=== PATIENT | female | born 1935 | race Caucasian/White ===

== ENCOUNTER 2018-05-21 10:11 | Inpatient (IN) ==
[2018-05-21] MEDS ORDERED: Ondansetron ODT 4 MG TAB.RAPDIS SL ONE (10:28)
--- NOTE | 2018-05-21 10:30 | Emergency Department Note ---
Disposition Clinical Impression: GI bleed, Anemia Disposition: Admitted As Inpatient Condition: Fair General Adult HPI - General Chief complaint: ED GI Bleed Stated complaint: low hemoglobin Time Seen by Provider: 05/21/18 10:13 - Related Data Home Medications Medication Instructions Recorded Confirmed Cholecalciferol (Vitamin D3) 1,000 unit PO DAILY 09/01/15 05/21/18 [Vitamin D3] Mv-Min/FA/Vit K/Lycop/Lut/Zeax 1 tab PO DAILY 09/01/15 05/21/18 [Ocuvite Eye Plus Multi Tablet] Sucralfate [Carafate] 1 gm PO BID 03/24/16 05/21/18 Citalopram [CeleXA] 20 mg PO DAILY 07/19/16 05/21/18 Cyanocobalamin (B-12) [Vitamin B12] 2,000 mcg PO DAILY 07/19/16 05/21/18 Ferrous Gluconate 324 mg PO BID 07/19/16 05/21/18 Furosemide [Lasix] 20 mg PO DAILY 07/19/16 05/21/18 Potassium Chloride [K-Tab ER] 20 meq PO DAILY 07/19/16 05/21/18 Sennosides/Docusate Sodium [Senna 2 tab PO BID 07/19/16 05/21/18 Plus] LORazepam [Ativan] 0.5 mg PO BID 05/21/18 05/21/18 Losartan Potassium [Cozaar] 50 mg PO DAILY 05/21/18 05/21/18 Meclizine HCl [Wal-Dram 2] 25 mg PO Q8H PRN 05/21/18 05/21/18 Mirtazapine [Remeron] 15 mg PO HS 05/21/18 05/21/18 OLANZapine [Zyprexa] 2.5 mg PO HS 05/21/18 05/21/18 Ondansetron HCl [Zofran] 4 mg PO Q6H PRN 05/21/18 05/21/18 Polyethylene Glycol 3350 [MiraLAX 1 scoop PO DAILY 05/21/18 05/21/18 Powder Bulk 17.9 Oz] Rivaroxaban [Xarelto] 20 mg PO DAILY 05/21/18 05/21/18 Previous Rx's Medication Instructions Recorded Omeprazole 20 mg PO DAILY #30 tablet. 09/22/15 Aspirin Enteric Coated [Aspirin EC] 81 mg PO DAILY #30 tablet. 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 history: Reports: no MANAGER INTERMEDIATE history - Social History Smoking Status: Former smoker Smokeless Tobacco Status: No Alcohol use: Reports: none Drug use: Reports: none Course Vital Signs Temperature 97.9 F 05/21/18 10:21 Pulse Rate 62 05/21/18 10:21 Respiratory Rate 18 05/21/18 10:21 Blood Pressure 136/83 05/21/18 10:21 O2 Sat by Pulse Oximetry 98 05/21/18 10:21 Temperature 98.3 F 05/21/18 14:20 Pulse Rate 86 05/21/18 14:20 Respiratory Rate 16 05/21/18 16:15 Blood Pressure 166/66 05/21/18 15:18 O2 Sat by Pulse Oximetry 99 05/21/18 16:15 Oxygen Delivery Oxygen Delivery Nasal Cannula Medical Decision Making - Lab Data Result diagrams: 05/21/18 15:45 05/21/18 10:41 Lab Results 05/21/18 05/21/18 05/21/18 Range/Units 10:41 10:41 10:41 WBC 4.0 L (4.3-11.1) K/mcL RBC 3.42 L (3.82-4.97) M/mcL Hgb 8.1 L (11.5-15.4) g/dL Hct 28.0 L (35.3-44.9) % MCV 81.9 L (83.0-100.0) fL MCH 23.7 L (28.0-33.3) pg MCHC 28.9 L (31.6-35.5) g/dL RDW 16.2 H (11.5-14.5) % Plt Count 221 (140-400) K/mcL MPV 10.8 (9.4-12.4) fL Immature Gran % 0.3 (0-4) % Seg Neutrophils % 61.6 % Lymphocytes % 23.2 % Monocytes % 10.6 % Eosinophils % 3.3 % Basophils % 1.0 % Neutrophils # 2.5 (1.6-8.9) K/mcL Lymphocytes # 0.9 (0.6-4.6) K/mcL Monocytes # 0.4 (0.0-1.3) K/mcL Eosinophils # 0.1 (0.0-0.6) K/mcL Basophils # 0.0 (0.0-0.2) K/mcL Nucleated RBCs/100 WBC 0.5 H (0) /100 WBC Hypochromasia Present A (Not Present) Anisocytosis 1+ A (Not Present) PT (9.4-12.1) Seconds INR APTT (26.0-36.0) Seconds Sodium 140 (136-145) mEq/L Potassium 4.1 (3.5-5.1) mEq/L Chloride 110 H (98-107) mEq/L Carbon Dioxide 27 (23-29) mEq/L BUN 20 (8-23) mg/dL Creatinine 0.85 (0.60-1.20) mg/dL Est GFR ( Amer) > 60 (> 60) Est GFR (Non-Af Amer) > 60 (> 60) BUN/Creatinine Ratio 24 (6-26) Glucose 170 H (70-105) mg/dL Calculated Osmolality 297 (280-300) Calcium 8.9 (8.6-10.3) mg/dL Total Bilirubin 0.3 (0.3-1.0) mg/dL AST 12 L (13-39) Units/L ALT 6 L (7-52) Units/L Alkaline Phosphatase 54 (34-104) Units/L Troponin I (< 0.04) ng/mL Serum Total Protein 6.5 (6.4-8.9) g/dL Albumin 3.5 (3.5-5.7) g/dL Globulin 3.0 (2.4-3.5) g/dL Albumin/Globulin Ratio 1.2 (1.1-2.2) Urine Color (Yellow) Urine Clarity (Clear) Urine pH (5.0-8.0) pH Units Ur Specific [place] (1.010-1.025) Urine Protein (Neg-Trace) mg/dL Urine Glucose (UA) (Normal) mg/dL Urine Ketones (Negative) mg/dL Urine Blood (Negative) Urine Nitrite (Negative) Urine Bilirubin (Negative) Urine Urobilinogen (Normal) mg/dL Ur Leukocyte Esterase (Negative) Urine Microscopic RBC (0-3) per hpf Urine Microscopic WBC (0-3) per hpf Ur Squamous Epith Cells (None-Few) per lpf Urine Bacteria (None-Few) per hpf Hyaline Casts (None-Few) per lpf Ur Culture Indicated? (NO) Blood Type A POSITIVE Antibody Screen NEGATIVE 05/21/18 05/21/18 05/21/18 Range/Units 10:41 11:34 12:13 WBC (4.3-11.1) K/mcL RBC (3.82-4.97) M/mcL Hgb (11.5-15.4) g/dL Hct (35.3-44.9) % MCV (83.0-100.0) fL MCH (28.0-33.3) pg MCHC (31.6-35.5) g/dL RDW (11.5-14.5) % Plt Count (140-400) K/mcL MPV (9.4-12.4) fL Immature Gran % (0-4) % Seg Neutrophils % % Lymphocytes % % Monocytes % % Eosinophils % % Basophils % % Neutrophils # (1.6-8.9) K/mcL Lymphocytes # (0.6-4.6) K/mcL Monocytes # (0.0-1.3) K/mcL Eosinophils # (0.0-0.6) K/mcL Basophils # (0.0-0.2) K/mcL Nucleated RBCs/100 WBC (0) /100 WBC Hypochromasia (Not Present) Anisocytosis (Not Present) PT 19.0 H (9.4-12.1) Seconds INR 1.7 APTT 37.8 H (26.0-36.0) Seconds Sodium (136-145) mEq/L Potassium (3.5-5.1) mEq/L Chloride (98-107) mEq/L Carbon Dioxide (23-29) mEq/L BUN (8-23) mg/dL Creatinine (0.60-1.20) mg/dL Est GFR ( Amer) (> 60) Est GFR (Non-Af Amer) (> 60) BUN/Creatinine Ratio (6-26) Glucose (70-105) mg/dL Calculated Osmolality (280-300) Calcium (8.6-10.3) mg/dL Total Bilirubin (0.3-1.0) mg/dL AST (13-39) Units/L ALT (7-52) Units/L Alkaline Phosphatase (34-104) Units/L Troponin I < 0.03 (< 0.04) ng/mL Serum Total Protein (6.4-8.9) g/dL Albumin (3.5-5.7) g/dL Globulin (2.4-3.5) g/dL Albumin/Globulin Ratio (1.1-2.2) Urine Color Yellow (Yellow) Urine Clarity Cloudy A (Clear) Urine pH 5.5 (5.0-8.0) pH Units Ur Specific [place] 1.019 (1.010-1.025) Urine Protein Negative (Neg-Trace) mg/dL Urine Glucose (UA) Normal (Normal) mg/dL Urine Ketones Negative (Negative) mg/dL Urine Blood Trace H (Negative) Urine Nitrite Positive A (Negative) Urine Bilirubin Negative (Negative) Urine Urobilinogen Normal (Normal) mg/dL Ur Leukocyte Esterase Moderate H (Negative) Urine Microscopic RBC 0-3 (0-3) per hpf Urine Microscopic WBC 30-50 H (0-3) per hpf Ur Squamous Epith Cells None Seen (None-Few) per lpf Urine Bacteria Many H (None-Few) per hpf Hyaline Casts Few (None-Few) per lpf Ur Culture Indicated? YES A (NO) Blood Type Antibody Screen Attestation Statement - Attestation Attestation: I examined this patient and my medical decision-making was reviewed with the Resident Physician. I agree with the documented findings, disposition and treatment plan as described except to the extent set forth below. [id number] time provided Patient presents from the extended care facility with anemia - Hb 6.9. She is a poor historian due to dementia. Medication list reviewed by me.
[2018-05-21 11:17] LABS: Hemoglobin 8.1 g/dL (11.5-15.4); Immature Granulocytes % 0.3 % (0-4)
[2018-05-21 11:18] LABS: Eosinophils # 0.1 K/mcL (0.0-0.6); Eosinophils % 3.3 %; Lymphocytes # 0.9 K/mcL (0.6-4.6); Lymphocytes % 23.2 %; Mean Corpuscular HGB Conc 28.9 g/dL (31.6-35.5); Mean Corpuscular Hemoglobin 23.7 pg (28.0-33.3); Mean Corpuscular Volume 81.9 fL (83.0-100.0); Mean Platelet Volume 10.8 fL (9.4-12.4); Monocytes # 0.4 K/mcL (0.0-1.3); Monocytes % 10.6 %; Nucleated Red Blood Cells 0.5 /100 WBC (0); Platelet Count 221 K/mcL (140-400); Red Blood Count 3.42 M/mcL (3.82-4.97); Red Cell Distribution Width 16.2 % (11.5-14.5); Segmented Neutrophils % 61.6 %
--- NOTE | 2018-05-21 11:19 | Emergency Department Note ---
Disposition Clinical Impression: GI bleed Qualifiers: GI bleed type/associated pathology: unspecified gastrointestinal hemorrhage type Qualified Code(s): K92.2 - Gastrointestinal hemorrhage, unspecified Anemia Qualifiers: Anemia type: unspecified type Qualified Code(s): D64.9 - Anemia, unspecified Disposition: Admitted As Inpatient Condition: Fair Forms: ED Satisfaction Letter Time of Disposition: 12:28 General Adult HPI - General Chief complaint: ED GI Bleed Stated complaint: low hemoglobin Time Seen by Provider: 05/21/18 10:13 Source: patient, EMS Mode of arrival: EMS Limitations: other Nursing Notes Reviewed: Yes Vital Signs Reviewed: Yes - History of Present Illness HPI Narrative: Patient is an 83-year-old female resident [facility] a [facility] who reports that this morning she was having abdominal pain, and a cough with throat pain that has been going on for 3 days. Additionally she was sent from the facility for hemoglobin of 6.9. Patient is alert and oriented to person and place only, and it was reported that she has baseline dementia. Additionally paperwork from the detention states that she has a history of peptic ulcer, hypertension, CVA, depression and anxiety, GERD, constipation, atrial fibrillation. Patient endorses chest pain that started today and is described as a dull pounding, abdominal pain centered around her umbilicus, nausea and vomiting, constipation, headache, dizzy and lightheadedness, and is tearful on exam. Patient denies shortness of breath and dysuria. Pain Scale: 0 - Related Data Home Medications Medication Instructions Recorded Confirmed Apixaban [Eliquis] 5 mg PO BID 09/01/15 07/24/16 Cholecalciferol (Vitamin D3) 1,000 unit PO DAILY 09/01/15 07/24/16 [Vitamin D3] Mv-Min/FA/Vit K/Lycop/Lut/Zeax 1 tab PO DAILY 09/01/15 07/24/16 [Ocuvite Eye Plus Multi Tablet] Valsartan [Diovan] 160 mg PO DAILY 03/11/16 07/24/16 Sucralfate [Carafate] 10 ml PO BID 03/24/16 07/24/16 Citalopram [CeleXA] 10 mg PO DAILY 07/19/16 07/24/16 Cyanocobalamin (B-12) [Vitamin B12] 2,000 mcg PO DAILY 07/19/16 07/24/16 Ferrous Gluconate 324 mg PO BID 07/19/16 07/24/16 Furosemide [Lasix] 20 mg PO DAILY 07/19/16 07/24/16 Potassium Chloride [K-Tab ER] 20 meq PO DAILY 07/19/16 07/24/16 Sennosides/Docusate Sodium [Senna 2 tab PO BID 07/19/16 07/24/16 Plus] Previous Rx's Medication Instructions Recorded Omeprazole 20 mg PO DAILY #30 tablet. 09/22/15 Aspirin Enteric Coated [Aspirin EC] 81 mg PO DAILY #30 tablet. 08/18/16 OLANZapine [Zyprexa Zydis] 5 mg PO HS #30 tab.rapdis 08/18/16 amLODIPine [Norvasc] 5 mg PO DAILY #30 tablet 08/18/16 Allergies Allergy/AdvReac Type Severity Reaction Status Date / Time codeine Allergy Mild See Verified 07/19/16 13:00 Comments All systems ED: reviewed and negative except as stated. Review of Systems: As Per HPI Constitutional: Reports: chills ENT ED: Reports: throat pain Cardiovascular: Reports: chest pain Respiratory: Reports: cough Gastrointestinal: Reports: abdominal pain, nausea, vomiting, constipation. Denies: diarrhea Genitourinary: Denies: dysuria Neurological: Reports: headache Psychiatric: Reports: anxiety Endocrine: Reports: heat or cold intolerance Past Medical History - Past Medical History Medical history: Reports: atrial fibrillation, CVA, dementia, hypertension, other Surgical history: Reports: cholecystectomy Psychiatric history: Reports: anxiety RAIL WASHER history: Reports: no RAIL WASHER history - Social History Smoking Status: Former smoker Smokeless Tobacco Status: No Alcohol use: Reports: none Drug use: Reports: none Physical Exam - General Limitations: other General appearance: alert, in no apparent distress - Head Head exam: atraumatic, normocephalic - Eye Eye exam: Present: normal appearance, PERRL - Chest Chest inspection: Present: normal inspection, symmetric chest wall rise - Respiratory Respiratory exam: Present: normal lung sounds bilaterally. Absent: respiratory distress, wheezes - Cardiovascular Cardiovascular exam: Present: regular rate, normal rhythm, systolic murmur - Abdominal Exam Abdominal exam: Present: soft, tenderness Abdominal tenderness: Present: suprapubic, diffuse - Rectal Exam Director Of Physical Security present during exam: Yes (RN Thi Martinez) Rectal exam: Present: normal rectal tone, black stool, hemorrhoids (external) - Neurological Exam Neurological exam: Present: alert - Psychiatric Psychiatric exam: Present: normal affect, normal mood - Skin Skin exam: Present: warm, dry, intact Course Course Narrative: Patient is tearful on exam, and complaining of abdominal pain, as well as chest pain. We will do a chest pain workup to include chest x-ray, troponin, basic labs to include CBC, CMP, type and screen. Straight catheter urinalysis. EKG. Hemoccult screening. An she will be given Zofran for her nausea. Vital Signs Temperature 97.9 F 05/21/18 10:21 Pulse Rate 62 05/21/18 10:21 Respiratory Rate 18 05/21/18 10:21 Blood Pressure 136/83 05/21/18 10:21 O2 Sat by Pulse Oximetry 98 05/21/18 10:21 Temperature 97.9 F 05/21/18 10:21 Pulse Rate 62 05/21/18 11:34 Respiratory Rate 18 05/21/18 11:34 Blood Pressure 166/49 05/21/18 11:34 O2 Sat by Pulse Oximetry 99 05/21/18 11:34 Oxygen Delivery Oxygen Delivery Room Air Medical Decision Making - MDM Narrative Medical decision making narrative: Patient's chest x-ray was negative for acute cardiopulmonary process and her troponin was normal. Patient's repeat hemoglobin in the department was 8.1, which represents a difference from her baseline of 11. We will hold off transfusing for now. Her Hemoccult was positive. So she will need to be admitted for GI bleed. Patient will be given a dose of Protonix in the emergency department. Additionally patient's urine was positive for UTI, so she will be given 1 g of Rocephin while in the department. Dr Jain, hospitalist, accepts the patient. - Medical Records Medical records reviewed: Yes I reviewed the patient's medical records. - Lab Data Lab results reviewed: Yes I reviewed the patient's lab results. Result diagrams: 05/21/18 10:41 05/21/18 10:41 Lab Results 05/21/18 05/21/18 05/21/18 Range/Units 10:41 10:41 10:41 WBC 4.0 L (4.3-11.1) K/mcL RBC 3.42 L (3.82-4.97) M/mcL Hgb 8.1 L (11.5-15.4) g/dL Hct 28.0 L (35.3-44.9) % MCV 81.9 L (83.0-100.0) fL MCH 23.7 L (28.0-33.3) pg MCHC 28.9 L (31.6-35.5) g/dL RDW 16.2 H (11.5-14.5) % Plt Count 221 (140-400) K/mcL MPV 10.8 (9.4-12.4) fL Immature Gran % 0.3 (0-4) % Seg Neutrophils % 61.6 % Lymphocytes % 23.2 % Monocytes % 10.6 % Eosinophils % 3.3 % Basophils % 1.0 % Neutrophils # 2.5 (1.6-8.9) K/mcL Lymphocytes # 0.9 (0.6-4.6) K/mcL Monocytes # 0.4 (0.0-1.3) K/mcL Eosinophils # 0.1 (0.0-0.6) K/mcL Basophils # 0.0 (0.0-0.2) K/mcL Nucleated RBCs/100 WBC 0.5 H (0) /100 WBC Hypochromasia Present A (Not Present) Anisocytosis 1+ A (Not Present) Sodium 140 (136-145) mEq/L Potassium 4.1 (3.5-5.1) mEq/L Chloride 110 H (98-107) mEq/L Carbon Dioxide 27 (23-29) mEq/L BUN 20 (8-23) mg/dL Creatinine 0.85 (0.60-1.20) mg/dL Est GFR ( Amer) > 60 (> 60) Est GFR (Non-Af Amer) > 60 (> 60) BUN/Creatinine Ratio 24 (6-26) Glucose 170 H (70-105) mg/dL Calculated Osmolality 297 (280-300) Calcium 8.9 (8.6-10.3) mg/dL Total Bilirubin 0.3 (0.3-1.0) mg/dL AST 12 L (13-39) Units/L ALT 6 L (7-52) Units/L Alkaline Phosphatase 54 (34-104) Units/L Troponin I (< 0.04) ng/mL Serum Total Protein 6.5 (6.4-8.9) g/dL Albumin 3.5 (3.5-5.7) g/dL Globulin 3.0 (2.4-3.5) g/dL Albumin/Globulin Ratio 1.2 (1.1-2.2) Urine Color (Yellow) Urine Clarity (Clear) Urine pH (5.0-8.0) pH Units Ur Specific [place] (1.010-1.025) Urine Protein (Neg-Trace) mg/dL Urine Glucose (UA) (Normal) mg/dL Urine Ketones (Negative) mg/dL Urine Blood (Negative) Urine Nitrite (Negative) Urine Bilirubin (Negative) Urine Urobilinogen (Normal) mg/dL Ur Leukocyte Esterase (Negative) Urine Microscopic RBC (0-3) per hpf Urine Microscopic WBC (0-3) per hpf Ur Squamous Epith Cells (None-Few) per lpf Urine Bacteria (None-Few) per hpf Hyaline Casts (None-Few) per lpf Ur Culture Indicated? (NO) Stool Occult Bld Scrn (Negative) Blood Type A POSITIVE Antibody Screen NEGATIVE 05/21/18 05/21/18 05/21/18 Range/Units 10:41 11:34 Unknown WBC (4.3-11.1) K/mcL RBC (3.82-4.97) M/mcL Hgb (11.5-15.4) g/dL Hct (35.3-44.9) % MCV (83.0-100.0) fL MCH (28.0-33.3) pg MCHC (31.6-35.5) g/dL RDW (11.5-14.5) % Plt Count (140-400) K/mcL MPV (9.4-12.4) fL Immature Gran % (0-4) % Seg Neutrophils % % Lymphocytes % % Monocytes % % Eosinophils % % Basophils % % Neutrophils # (1.6-8.9) K/mcL Lymphocytes # (0.6-4.6) K/mcL Monocytes # (0.0-1.3) K/mcL Eosinophils # (0.0-0.6) K/mcL Basophils # (0.0-0.2) K/mcL Nucleated RBCs/100 WBC (0) /100 WBC Hypochromasia (Not Present) Anisocytosis (Not Present) Sodium (136-145) mEq/L Potassium (3.5-5.1) mEq/L Chloride (98-107) mEq/L Carbon Dioxide (23-29) mEq/L BUN (8-23) mg/dL Creatinine (0.60-1.20) mg/dL Est GFR ( Amer) (> 60) Est GFR (Non-Af Amer) (> 60) BUN/Creatinine Ratio (6-26) Glucose (70-105) mg/dL Calculated Osmolality (280-300) Calcium (8.6-10.3) mg/dL Total Bilirubin (0.3-1.0) mg/dL AST (13-39) Units/L ALT (7-52) Units/L Alkaline Phosphatase (34-104) Units/L Troponin I < 0.03 (< 0.04) ng/mL Serum Total Protein (6.4-8.9) g/dL Albumin (3.5-5.7) g/dL Globulin (2.4-3.5) g/dL Albumin/Globulin Ratio (1.1-2.2) Urine Color Yellow (Yellow) Urine Clarity Cloudy A (Clear) Urine pH 5.5 (5.0-8.0) pH Units Ur Specific [place] 1.019 (1.010-1.025) Urine Protein Negative (Neg-Trace) mg/dL Urine Glucose (UA) Normal (Normal) mg/dL Urine Ketones Negative (Negative) mg/dL Urine Blood Trace H (Negative) Urine Nitrite Positive A (Negative) Urine Bilirubin Negative (Negative) Urine Urobilinogen Normal (Normal) mg/dL Ur Leukocyte Esterase Moderate H (Negative) Urine Microscopic RBC 0-3 (0-3) per hpf Urine Microscopic WBC 30-50 H (0-3) per hpf Ur Squamous Epith Cells None Seen (None-Few) per lpf Urine Bacteria Many H (None-Few) per hpf Hyaline Casts Few (None-Few) per lpf Ur Culture Indicated? YES A (NO) Stool Occult Bld Scrn Positive A (Negative) Blood Type Antibody Screen - Radiology Data Radiology results reviewed: Yes I reviewed the patient's radiology results. Chest X-Ray 05/21/18 10:31 IMPRESSION: No acute cardiopulmonary disease D/ / Will Zhang MD / Will Zhang MD Interpreting Provider: Will Zhang MD - EKG Data EKG #1 EKG attestation: Yes I reviewed and interpreted this EKG. EKG results narrative: HR 63, Sinus rhythm, axis normal. TN 169, QRS 108, QTC 455. No evidence of St elevation or depression.
[2018-05-21 11:20] LABS: Neutrophils # 2.5 K/mcL (1.6-8.9)
[2018-05-21 11:23] LABS: Alanine Aminotransferase 6 Units/L (7-52); Albumin 3.5 g/dL (3.5-5.7); Albumin/Globulin Ratio 1.2 (1.1-2.2); Alkaline Phosphatase 54 Units/L (34-104); Aspartate Amino Transferase 12 Units/L (13-39); BUN/Creatinine Ratio 24 (6-26); Bilirubin,Total 0.3 mg/dL (0.3-1.0); Blood Urea Nitrogen 20 mg/dL (8-23); Calcium 8.9 mg/dL (8.6-10.3); Carbon Dioxide 27 mEq/L (23-29); Chloride 110 mEq/L (98-107); Glucose 170 mg/dL (70-105); Osmolality,Calculated 297 (280-300); Potassium 4.1 mEq/L (3.5-5.1); Sodium 140 mEq/L (136-145); Total Protein 6.5 g/dL (6.4-8.9); eGFR For Non-African Americans > 60 (> 60)
[2018-05-21 11:37] LABS: Hypochromasia Present (Not Present)
[2018-05-21 11:38] LABS: Anisocytosis 1+ (Not Present)
[2018-05-21 11:47] LABS: Bilirubin,Urine Negative (Negative); Blood,Urine Trace (Negative); Clarity,Urine Cloudy (Clear); Color,Urine Yellow (Yellow); Glucose,Urine (UA) Normal (Normal); Ketones,Urine Negative (Negative); Leukocyte Esterase,Urine Moderate (Negative); Nitrite,Urine Positive (Negative); PH,Urine 5.5 pH Units (5.0-8.0); Protein,Urine Negative (Neg-Trace); Specific Gravity,Urine 1.019 (1.010-1.025); Urobilinogen,Urine Normal (Normal)
[2018-05-21 11:49] LABS: Bacteria,Urine Many per hpf (None-Few); Hyaline Casts,Urine Few per lpf (None-Few); RBC,Urine 0-3 per hpf (0-3); Squamous Epithelial Cell,Urine None Seen per lpf (None-Few); WBC,Urine 30-50 per hpf (0-3)
[2018-05-21] MEDS ORDERED: Pantoprazole 40 MG VIAL IVP ONE (12:02)
[2018-05-21] MEDS ORDERED: cefTRIAXone 1,000 MG in Water for inj. (sterile) 20 ML 10 ML IVP ONE (12:02)
[2018-05-21 12:37] LABS: INR 1.7
[2018-05-21 12:39] LABS: Activated Partial Thrombo Time 37.8 Seconds (26.0-36.0)
[2018-05-21] MEDS ORDERED: Ipratropium/Albuterol Neb 3 ML IH PRN (13:02)
[2018-05-21] MEDS ORDERED: Naloxone 0.4 MG/ML INJ IVP PRN (13:09)
[2018-05-21] MEDS ORDERED: Acetaminophen 325 MG TABLET PO PRN (13:09)
--- NOTE | 2018-05-21 13:50 | Internal Med History&Physical ---
<Demar Cat - Last Filed: 05/21/18 14:48> Date of Encounter: 05/21/18 Time of Encounter: 12:30 Internal Medicine - H&P: HPI Chief complaint: Low Hgb/Weakness/Pain w/Urination Admitted From: Emergency Dept Plans for Post Hospital Care: Transfer Nursing Home Facility History of present illness: Ms. Yin is a 83 year old female w/PMH of paroxysmal atrial fibrillation, history of CVA, dementia, HTN, GERD, vertigo, anxiety, and depression presents from the ED w/CC of Hgb of 6.9 at ECF last night ([facility]). Pt. denies unusual bleeding or presence of visible blood in stool or melanotic stools but reports weakness and hx of anemia. Pt. also reports pain/pressure in suprapubic area w/discomfort and difficulty when urinating. States sx have been present for the past several days. Also reports cough for the same time period. States appetite is good and does not use nutritional supplementation. Pt. reports weakness in bilateral LEs, SOB, and difficulty w/ambulation using walker but denies recent illness, fever, chills, nausea, vomiting, headache, changes in vision, unusual bleeding, diarrhea, constipation, dizziness, lightheadedness, numbness, tingling, pre-syncope, or syncope. Past Med Surg Social Fam HX - Past Medical History Source: patient, old records reviewed Medical history: atrial fibrillation, CVA, dementia, GERD, hypertension, other ( Vertigo) Additional medical history: vitamin D deficency Psychiatric history: anxiety, depression, PTSD - Past Surgical History Surgical History: cholecystectomy Additional surgical history: hernia,lasik - Social History Smoking Status: Former smoker Smokeless Tobacco Status: No Alcohol use: none Drug use: none Current living situation: [facility] Activity Level: Uses cane/walker Recent Out of Country Travel Within the Last 8 Weeks: No Exposure or Possible Exposure to Illness During Travel: No - Family History Mother Adopted: No Race: Family Member Ethnicity: Non- Living Status: Hx Family Cardiac Disorders: Yes (heart problems) Father History Unknown: Yes (D/t divorce) Race: Family Member Ethnicity: Non- Living Status: Cause of : Unknown Internal Medicine - H&P: Meds Cholecalciferol (Vitamin D3) [Vitamin D3] 1,000 unit PO DAILY 09/01/15 [History] Mv-Min/FA/Vit K/Lycop/Lut/Zeax [Ocuvite Eye Plus Multi Tablet] 1 tab PO DAILY [History] Omeprazole 20 mg PO DAILY #30 tablet. 09/22/15 [Rx] Sucralfate [Carafate] 1 gm PO BID 03/24/16 [History] Citalopram [CeleXA] 20 mg PO DAILY 07/19/16 [History] Cyanocobalamin (B-12) [Vitamin B12] 2,000 mcg PO DAILY 07/19/16 [History] Ferrous Gluconate 324 mg PO BID 07/19/16 [History] Furosemide [Lasix] 20 mg PO DAILY 07/19/16 [History] Potassium Chloride [K-Tab ER] 20 meq PO DAILY 07/19/16 [History] Sennosides/Docusate Sodium [Senna Plus] 2 tab PO BID 07/19/16 [History] Aspirin Enteric Coated [Aspirin EC] 81 mg PO DAILY #30 tablet. 08/18/16 [Rx] LORazepam [Ativan] 0.5 mg PO BID 05/21/18 [History] Losartan Potassium [Cozaar] 50 mg PO DAILY 05/21/18 [History] Meclizine HCl [Wal-Dram 2] 25 mg PO Q8H PRN 05/21/18 [History] Mirtazapine [Remeron] 15 mg PO HS 05/21/18 [History] OLANZapine [Zyprexa] 2.5 mg PO HS 05/21/18 [History] Ondansetron HCl [Zofran] 4 mg PO Q6H PRN 05/21/18 [History] Polyethylene Glycol 3350 [MiraLAX Powder Bulk 17.9 Oz] 1 scoop PO DAILY [History] Rivaroxaban [Xarelto] 20 mg PO DAILY 05/21/18 [History] 3 Allergy/AdvReac Type Severity Reaction Status Date / Time codeine Allergy Mild See Verified 07/19/16 13:00 Comments All Systems PM: A 10-system review of systems was performed and is negative for pertinent findings except as documented above in the HPI. - Constitutional Constitutional: as per HPI, weakness (Bilateral LEs), no chills, no fever(s), no night sweats - EENT Eyes: no change in vision, no discharge, no pain, no photophobia Ears: no ear discharge, no ear pain, no tinnitus Nose, mouth and throat: no dysphagia, no nasal discharge, no neck pain, no sore throat - Breasts Breasts: as per HPI - Cardiovascular Cardiovascular ROS IM: as per HPI, dyspnea, dyspnea on exertion, no chest pain, no diaphoresis, no lightheadedness, no palpitations, no syncope - Respiratory Respiratory: as per HPI, cough, dyspnea, dyspnea on exertion, no wheezing, no excessive phlegm production - Gastrointestinal Gastrointestinal: as per HPI, abdominal pain (Suprapubic region), no diarrhea, no hematemesis, no hematochezia, no melena, no nausea, no vomiting - Genitourinary Genitourinary: as per HPI, difficulty urinating, urinary hesitancy, no change in urinary stream, no dysuria, no flank pain, no hematuria Menstruation: as per HPI - Musculoskeletal Musculoskeletal ROS IM: as per HPI, muscle weakness (Bilateral LEs), no numbness , no tingling - Integumentary Integumentary IM: no rash, no unusual bruising - Neurological Neurological ROS: as per HPI, no confusion, no convulsions, no focal weakness, no numbness, no tingling, no tremor(s) - Psychiatric Psychiatric: as per HPI, anxiety, depression - Endocrine Endocrine IM: as per HPI - Hematologic/Lymphatic Hematologic/Lymphatic: no easy bruising - Allergic/Immunologic Allergic/Immunologic: as per HPI - Constitutional Vitals: Temp Pulse Resp BP Pulse Ox 97.9 F 58 16 156/64 100 05/21/18 10:21 05/21/18 13:01 05/21/18 13:01 05/21/18 13:01 05/21/18 13:01 General appearance: Present: cooperative, A&O X 2, mild distress (Abdominal pain , SOB), obese, answers questions appropriately Exam: Pt. examined at bedside in ED. Reports abdominal pain in central abdomen as well as suprapubic area, shortness of breath, cough, and weakness in LEs. Denies any other complaints at this time. Pt. has hx of dementia but is able to hold conversation and has recall regarding medical and family hx. VS: 97.9F temp , HR 58, RR 16, BP 156/64, SPO2 100% on 2 L via nasal cannula. - Head Head exam: Present: atraumatic, normocephalic - Eye Eye exam: Present: PERRL, conjuntiva pink, sclera anicteric Pupils: Present: PERRL - ENT ENT exam: Present: normal exam - Neck Neck exam general surgery: Present: normal inspection, supple, trachea midline. Absent: lymphadenopathy - Respiratory Respiratory exam: Present: CTAB. Absent: accessory muscle use, rales, rhonchi, wheezes - Cardiovascular Cardiovascular exam: Present: RRR, +S1, +S2. Absent: diastolic murmur, gallop, rubs, systolic murmur - GI/Abdominal GI/Abdominal exam: Present: normal bowel sounds, soft, tenderness, no peritoneal signs. Absent: distended - Rectal Rectal exam: Present: deferred - Additional comments: exam deferred. - Extremities Exam Extremities exam: Present: pedal edema (Non-pitting), warm, radial pulses palpable and symmetrical. Absent: calf tenderness, cyanotic - Back Exam Back exam: Present: normal inspection - Neurological Exam Neurological exam: Present: alert, CN II-XII intact, oriented X3, no focal deficits. Absent: pronater drift, facial droop, speech deficit - Psychiatric Psychiatric exam: Present: anxious - Skin Skin exam: Present: dry, intact Internal Med - H&P Results - Labs CBC & Chem 7: 05/21/18 10:41 05/21/18 10:41 - EKG Data EKG shows normal: sinus rhythm - EKG Data Prior EKG available for review: yes EKG comments: 05/21/18 13:56 EKG dated 11/04/16 shows sinus bradycardia with borderline left axis deviation and poor R-wave progression. EKG dated 05/21/18 shows sinus rhythm with normal P axis, the rate 50-99. - Diagnostic Studies Chest x-ray Additional comments: Impressions Chest X-Ray 05/21/18 10:31 IMPRESSION: No acute cardiopulmonary disease D/ / Will Zhang MD / Will Zhang MD Interpreting Provider: Will Zhang MD - Assessment and plan (1) GI bleed Current Visit: Yes Status: Acute Assessment and plan: Acute suspected GI bleed based on drop in Hgb to 6.9 at ECF last night. Hgb 8.1 at [facility] today on admission. Pt. has hx of anemia. Positive fecal hemoccult today. Pt. denies visible jose alberto blood in stool or melanotic stools. Reports abdominal pain. Iron profile/B12/Folate ordered d/t pts. hx of anemia. Pt. on Xarelto d/t hx of paroxysmal Afib. Last dose of Xarelto was 07:22 this morning at ECF. IVP Protonix 40 mg BID ordered. H/H Q6HR. Pt. typed and screened for possible transfusion. GI consult ordered and discussed w/Dr. Jenkins and I appreciate the consult and recommendations. NPO for now. Bilateral SCDs for DVT prophylaxis. Will follow GI recommendations regarding re-starting Xarelto. Pt. discussed w/Dr. Jain who agrees w/plan of care. Pt. is high risk for further morbidity and complications due to current suspected GI bleeding, drop in Hgb, current UTI, history, and risk factors and comorbidities. Observation. Qualifiers: GI bleed type/associated pathology: unspecified gastrointestinal hemorrhage type Qualified Code(s): K92.2 - Gastrointestinal hemorrhage, unspecified (2) Urinary tract infection Current Visit: Yes Status: Acute Assessment and plan: Acute UTI according to U/A which showed positive nitrites, moderate leukocyte esterase, high microscopic WBCs, and many urine bacteria. IVPB ceftriaxone 2, 000 mg daily ordered for infection coverage. Urine culture ordered. Will adjust abx coverage based on culture results if warranted. Qualifiers: Urinary tract infection type: site unspecified Hematuria presence: without hematuria Qualified Code(s): N39.0 - Urinary tract infection, site not specified (3) Abdominal pain Current Visit: Yes Status: Acute Assessment and plan: Acute abdominal pain in central abdomen and lower suprapubic area d/t GI bleed and current UTI. Suspected GI bleeding d/t drop in Hgb. IVP Protonix 40 mg BID. GI consult ordered and discussed w/Dr. Jenkins and I appreciate the consult and recommendations as always. Stair-step pain medication for pain mgmt. U/A indicative of UTI/culture Urine culture ordered. IVPB ceftriaxone 2,000 daily ordered. Qualifiers: Abdominal location: lower abdomen, unspecified Qualified Code(s): R10.30 - Lower abdominal pain, unspecified (4) Weakness of both lower extremities Current Visit: Yes Status: Acute Assessment and plan: Acute worsening weakness of bilateral LEs. Pt. describes difficulty w/ ambulating using walker. Falls/safety precautions and up with assist only. PT/ OT consults ordered. (5) Anemia Current Visit: Yes Status: Chronic Assessment and plan: Hx of chronic anemia. Hgb 6.9 at ECF last night. 8.1 at [facility] today on admission. Positive fecal hemoccult today. H/H Q6HR. Iron profile/B12/Folate ordered. Continue pts. B12 and ferrous gluconate. GI consult ordered and discussed w/Dr. Jenkins and I appreciate the consult and recommendations as always. Qualifiers: Anemia type: unspecified type Qualified Code(s): D64.9 - Anemia, unspecified (6) HTN (hypertension) Current Visit: Yes Status: Chronic Assessment and plan: Hx of chronic HTN. Monitor pt. and VS. Continue pts. Cozaar. Add IVP hydralazine 10 mg Q6HR PRN w/parameters. Qualifiers: Hypertension type: essential hypertension Qualified Code(s): I10 - Essential (primary) hypertension (7) GERD (gastroesophageal reflux disease) Current Visit: Yes Status: Chronic Assessment and plan: Hx of chronic GERD. Hold pts. PO omeprazole and administer IVP Protonix 40 mg BID. Qualifiers: Esophagitis presence: esophagitis presence not specified Qualified Code(s) : K21.9 - Gastro-esophageal reflux disease without esophagitis (8) Anxiety and depression Current Visit: Yes Status: Chronic Assessment and plan: Hx of chronic anxiety, depression, and PTSD. Continue pts. Ativan, Celexa, Zyprexa, and Remeron. Order sitter if pt. shows signs of Sundowning. (9) Paroxysmal a-fib Current Visit: Yes Status: Chronic Assessment and plan: Hx of paroxysmal Afib. EKG today shows sinus rhythm. Will continue pts. Xarelto on GI's recommendation d/t current suspected GI bleeding. Continuous cardiac telemetry. (10) Dementia Current Visit: Yes Status: Chronic Assessment and plan: Hx of chronic dementia. Continue Zyprexa HS. Will order sitter if pt. shows sx of Sundowning. Qualifiers: Dementia type: vascular dementia Dementia behavioral disturbance: with behavioral disturbance Qualified Code(s): F01.51 - Vascular dementia with behavioral disturbance (11) Vertigo Current Visit: Yes Status: Chronic Assessment and plan: Hx of chronic vertigo. Falls/safety precautions and up with assist only. Continue pts. Meclizine. (12) History of CVA (cerebrovascular accident) Current Visit: Yes Status: Resolved Assessment and plan: Hx of previous CVA. Pt. denies residual effects/weakness. (13) DVT prophylaxis Current Visit: Yes Status: Acute Assessment and plan: Bilateral SCDs on LEs d/t current suspected GI bleeding. Pt. on Xarelto and received last dose at 07:22 this morning. INR 1.7 on admission. Monitor pt. for signs of bleeding. (14) SOB (shortness of breath) Current Visit: Yes Status: Acute Assessment and plan: Acute SOB, likely d/t anemia. Pt. denies home O2 use or nebulizer txs. Supplemental O2 w/titration and SpO2 monitoring. Xopenex IH. Pt. also reports cough for the past few days. Respiratory Infection panel ordered. Mucinex for cough. - Time Spent With Patient Total time spent is greater than 50% in coordination of care (as documented) at patient's floor/unit and/or counseling patient: Greater than 35 minutes <Jonathon Jain - Last Filed: 05/21/18 15:31> Date of Encounter: 05/21/18 Internal Medicine - H&P: HPI History of present illness: Ms. Yin is a 83 year old female All Systems PM: A 10-system review of systems was performed and is negative for pertinent findings except as documented above in the HPI. - Constitutional Vitals: Temp Pulse Resp BP Pulse Ox 98.3 F 86 16 166/66 93 05/21/18 14:20 05/21/18 14:20 05/21/18 14:20 05/21/18 15:18 05/21/18 14:20 Internal Med - H&P Results - Labs CBC & Chem 7: 05/21/18 10:41 05/21/18 10:41 - Assessment and plan (1) Anemia Current Visit: Yes Status: Chronic Qualifiers: Qualified Code(s): D64.9 - Anemia, unspecified (2) Abdominal pain Current Visit: Yes Status: Acute Qualifiers: Qualified Code(s): R10.30 - Lower abdominal pain, unspecified (3) DVT prophylaxis Current Visit: Yes Status: Acute (4) GI bleed Current Visit: Yes Status: Acute Qualifiers: Qualified Code(s): K92.2 - Gastrointestinal hemorrhage, unspecified (5) Vertigo Current Visit: Yes Status: Chronic (6) History of CVA (cerebrovascular accident) Current Visit: Yes Status: Resolved (7) Dementia Current Visit: Yes Status: Chronic Qualifiers: Qualified Code(s): F01.51 - Vascular dementia with behavioral disturbance (8) Paroxysmal a-fib Current Visit: Yes Status: Chronic (9) Urinary tract infection Current Visit: Yes Status: Acute Qualifiers: Qualified Code(s): N39.0 - Urinary tract infection, site not specified (10) HTN (hypertension) Current Visit: Yes Status: Chronic Qualifiers: Qualified Code(s): I10 - Essential (primary) hypertension (11) GERD (gastroesophageal reflux disease) Current Visit: Yes Status: Chronic Qualifiers: Qualified Code(s): K21.9 - Gastro-esophageal reflux disease without esophagitis (12) Weakness of both lower extremities Current Visit: Yes Status: Acute (13) Anxiety and depression Current Visit: Yes Status: Chronic (14) SOB (shortness of breath) Current Visit: Yes Status: Acute - Time Spent With Patient Total time spent is greater than 50% in coordination of care (as documented) at patient's floor/unit and/or counseling patient: - Attending Attestation I have seen and examined the patient with [employer] Demar Cat and agree with his/her assessment and plan. 83-year-old female with history of dementia, CVA, A. fib on Xarelto, presented from extended care facility due to concern of low hemoglobin. Repeat check in the ER was actually better than the one reported from the residential. Stool occult positive, otherwise no evidence of coagulopathy or thrombocytopenia. Urinalysis positive for nitrite and leukocyte esterase. Pt remains afebrile and hemodynamically stable. We will keep her nothing by mouth, trend H&H, PPI twice a day, and send anemia workup. Treat UTI with IV Rocephin. GI consult for possible EGD. Jonathon Jain MD
--- NOTE | 2018-05-21 15:25 | Internal Medicine Consult Note ---
Date of Encounter: 05/21/18 Time of Encounter: 15:18 - Assessment and Plan (1) GI bleed Current Visit: Yes Status: Acute Assessment and plan: Given the scant melena in the Rectum, she does have GI bleeding.. could be Ulceration, Esophagitis, or even Colon polyp. I had a long discussion with Isatu who has been contemplating Hospice Care. We agreed to stop the Xarelto, its too risky given her status and age.. sounds like the family is interested in comfort care. Risk of and cont. bleeding discussed. I will give Vit. K to help with the INR. Willl not pursue Endoscopy at this time I have discussed with the Hospitalist [employer] [employer] about this. The Daughter will be in tomorow AM to discuss further options. Qualifiers: GI bleed type/associated pathology: unspecified gastrointestinal hemorrhage type Qualified Code(s): K92.2 - Gastrointestinal hemorrhage, unspecified (2) Anemia Current Visit: Yes Status: Acute Assessment and plan: With blood loss anemia. Qualifiers: Anemia type: unspecified type Qualified Code(s): D64.9 - Anemia, unspecified (3) Atrial fibrillation Current Visit: Yes Status: Chronic Qualifiers: Atrial fibrillation type: paroxysmal Qualified Code(s): I48.0 - Paroxysmal atrial fibrillation (4) Dementia Current Visit: Yes Status: Chronic Qualifiers: Dementia type: vascular dementia Dementia behavioral disturbance: with behavioral disturbance Qualified Code(s): F01.51 - Vascular dementia with behavioral disturbance (5) Paroxysmal a-fib Current Visit: Yes Status: Chronic Internal Medicine - CN: HPI - Data of Consult Patient: new to practice Requesting Physician: Jonathon Jain MD - Consult Narrative Reason for consult: Possible GI Bleeding/ Anemia/ Positive Hemocult History of present illness: Ms. Yin is a 83 year old female resides in [facility] was sent out to [facility] for cough, possible pain and noted anemia. Pt. has moderate Dementia. She is not aware of any GI bleeding but admits she does not feel well. Somewhat vague. She does have paroxyms of dry cough, and looks mod. frail. She is a bit restless. She has had Colonoscopy, with incomplete polypectomy in 2016. She was not able to follow up with the surgeon last year, most likely due to declining health or lose to follow up. She last had EGD in early 2016 which was normal. She is on Carafate, as well as Eliquis for Atrial Fibrillation. HGB in ED was 8.1, her baseline about a 1.5 yrs. ago was normal. She can walk with walker, and is DNR. She does carry dx of GERD, PUDx, and diverticulosis. Past Med Surg Social Fam HX - Past Medical History Medical history: atrial fibrillation, CVA, dementia, GERD, hypertension, other (Vertigo) Additional medical history: vitamin D deficency Psychiatric history: anxiety, depression, PTSD - Past Surgical History Surgical History: cholecystectomy Additional surgical history: hernia,lasik - Social History Smoking Status: Former smoker Smokeless Tobacco Status: No Alcohol use: none Drug use: none - Family History Father History Unknown: Yes (D/t divorce) Race: Family Member Ethnicity: Non- Living Status: Cause of : Unknown Mother Adopted: No Race: Family Member Ethnicity: Non- Living Status: Hx Family Cardiac Disorders: Yes (heart problems) ROS unobtainable: due to mental status Internal Medicine - CN: Meds Cholecalciferol (Vitamin D3) [Vitamin D3] 1,000 unit PO DAILY 09/01/15 [History] Mv-Min/FA/Vit K/Lycop/Lut/Zeax [Ocuvite Eye Plus Multi Tablet] 1 tab PO DAILY 09/01/15 [History] Omeprazole 20 mg PO DAILY #30 tablet. 09/22/15 [Rx] Sucralfate [Carafate] 1 gm PO BID 03/24/16 [History] Citalopram [CeleXA] 20 mg PO DAILY 07/19/16 [History] Cyanocobalamin (B-12) [Vitamin B12] 2,000 mcg PO DAILY 07/19/16 [History] Ferrous Gluconate 324 mg PO BID 07/19/16 [History] Furosemide [Lasix] 20 mg PO DAILY 07/19/16 [History] Potassium Chloride [K-Tab ER] 20 meq PO DAILY 07/19/16 [History] Sennosides/Docusate Sodium [Senna Plus] 2 tab PO BID 07/19/16 [History] Aspirin Enteric Coated [Aspirin EC] 81 mg PO DAILY #30 tablet. 08/18/16 [Rx] LORazepam [Ativan] 0.5 mg PO BID 05/21/18 [History] Losartan Potassium [Cozaar] 50 mg PO DAILY 05/21/18 [History] Meclizine HCl [Wal-Dram 2] 25 mg PO Q8H PRN 05/21/18 [History] Mirtazapine [Remeron] 15 mg PO HS 05/21/18 [History] OLANZapine [Zyprexa] 2.5 mg PO HS 05/21/18 [History] Ondansetron HCl [Zofran] 4 mg PO Q6H PRN 05/21/18 [History] Polyethylene Glycol 3350 [MiraLAX Powder Bulk 17.9 Oz] 1 scoop PO DAILY 05/21/18 [History] Rivaroxaban [Xarelto] 20 mg PO DAILY 05/21/18 [History] Allergy/AdvReac Type Severity Reaction Status Date / Time codeine Allergy Mild See Verified 07/19/16 13:00 Comments Internal Med - CN: Exam - Constitutional Vitals: Temp Pulse Resp BP Pulse Ox 98.3 F 86 16 182/84 93 05/21/18 14:20 05/21/18 14:20 05/21/18 14:20 05/21/18 14:20 05/21/18 14:20 General appearance IM: Present: cooperative, A&O X 1 Exam: Restless, poor Historian - Head Head exam: Present: atraumatic - Neck Neck exam general surgery: Present: supple, trachea midline. Absent: nuchal rigidity Additional comments: Some pain with active ROM - Respiratory Respiratory exam: Present: rhonchi. Absent: wheezes, tachypnea Additional comments: May have consolidation in the L base - Cardiovascular Cardiovascular exam IM: Present: irregular rhythm, +S1, +S2. Absent: JVD, tachycardia - GI/Abdominal GI/Abdominal exam IM: Present: normal bowel sounds, soft. Absent: rebound, rigid, tenderness - Rectal Rectal exam: Present: black stool. Absent: fecal impaction Internal Medicine - CN: Reslt - Labs CBC & Chem 7: 05/21/18 10:41 05/21/18 10:41 - ABG Interpretation ABG results: PT/INR, D-dimer PT 19.0 Seconds (9.4-12.1) H 05/21/18 12:13 Consult Discharge Plan - Plan Referrals: NikolayIsatu Rivera MD [Primary Care Provider] -
[2018-05-21 15:59] LABS: Hematocrit 30.1 % (35.3-44.9); Hemoglobin 8.5 g/dL (11.5-15.4)
[2018-05-21] MEDS: Levalbuterol Neb 1.25 MG/3 ML IH SCH ×2 (16:12→22:30)
[2018-05-21 16:23] LABS: % Iron Saturation 6 % (15-50); Iron 26 mcg/dL (50-170); Transferrin 328 mg/dL (203-362)
[2018-05-21 16:45] LABS: Vitamin B12 1234 pg/mL (250-1100)
[2018-05-21 16:46] LABS: Folate > 22.3 ng/mL (3.0-16.0)
[2018-05-21] MEDS: *HR* Promethazine 25 MG/ML VIAL IVP PRN (16:46)
[2018-05-21] MEDS: Pantoprazole 40 MG VIAL IVP SCH (17:56)
[2018-05-21] MEDS ORDERED: *HR* LORazepam 2 MG/ML VIAL IVP ONE (18:42)
[2018-05-21] MEDS: Mirtazapine 15 MG TABLET PO SCH (22:06)
[2018-05-21] MEDS: Sennosides/Docusate Sodium TABLET PO SCH (22:07)
[2018-05-21] MEDS: *HR* LORazepam 0.5 MG TABLET PO SCH (22:09)
[2018-05-21 22:10] LABS: Hematocrit 26.5 % (35.3-44.9); Hemoglobin 7.6 g/dL (11.5-15.4)
[2018-05-21] MEDS: OLANZapine 5 MG TAB.RAPDIS PO SCH (22:10)
[2018-05-22] MEDS: Levalbuterol Neb 1.25 MG/3 ML IH SCH ×4 (04:37→22:22)
[2018-05-22 05:34] LABS: Eosinophils % 3.3 %; Immature Granulocytes % 0.2 % (0-4); Mean Corpuscular Hemoglobin 23.9 pg (28.0-33.3)
[2018-05-22 05:35] LABS: Basophils % 0.2 %; Eosinophils # 0.1 K/mcL (0.0-0.6); Hematocrit 23.9 % (35.3-44.9); Hemoglobin 6.9 g/dL (11.5-15.4); Lymphocytes # 1.1 K/mcL (0.6-4.6); Lymphocytes % 26.2 %; Mean Corpuscular HGB Conc 28.9 g/dL (31.6-35.5); Mean Corpuscular Volume 82.7 fL (83.0-100.0); Mean Platelet Volume 12.4 fL (9.4-12.4); Monocytes # 0.6 K/mcL (0.0-1.3); Monocytes % 13.9 %; Neutrophils # 2.4 K/mcL (1.6-8.9); Platelet Count 140 K/mcL (140-400); Red Blood Count 2.89 M/mcL (3.82-4.97); Red Cell Distribution Width 16.3 % (11.5-14.5); Segmented Neutrophils % 56.2 %
[2018-05-22 05:56] LABS: Alanine Aminotransferase 4 Units/L (7-52); Albumin 3.2 g/dL (3.5-5.7); Albumin/Globulin Ratio 1.2 (1.1-2.2); Alkaline Phosphatase 45 Units/L (34-104); Aspartate Amino Transferase 13 Units/L (13-39); BUN/Creatinine Ratio 17 (6-26); Bilirubin,Total 0.4 mg/dL (0.3-1.0); Blood Urea Nitrogen 15 mg/dL (8-23); Calcium 8.6 mg/dL (8.6-10.3); Carbon Dioxide 27 mEq/L (23-29); Chloride 109 mEq/L (98-107); Chol/HDL Ratio 3.1 (0-4.9); Cholesterol 110 mg/dL (< 200); Globulin 2.6 g/dL (2.4-3.5); Glucose 98 mg/dL (70-105); HDL Cholesterol 36 mg/dL (40-59); LDL Cholesterol,Calculated 65 mg/dL (0-99); Magnesium 2.1 mg/dL (1.6-2.6); Osmolality,Calculated 291 (280-300); Potassium 3.8 mEq/L (3.5-5.1); Sodium 140 mEq/L (136-145); Total Protein 5.8 g/dL (6.4-8.9); Triglycerides 47 mg/dL (< 150); eGFR For Non-African Americans 60 (> 60)
[2018-05-22 06:02] LABS: Anisocytosis 1+ (Not Present); Hypochromasia Present (Not Present); Platelet Estimate Normal (Normal)
[2018-05-22 06:03] LABS: Poikilocytosis 1+ (Not Present)
[2018-05-22] MEDS: Pantoprazole 40 MG VIAL IVP SCH ×2 (06:32→18:29)
[2018-05-22] MEDS ORDERED: Cholecalciferol (D-3) 1,000 UNIT TABLET PO SCH (09:00)
[2018-05-22] MEDS ORDERED: cefTRIAXone 2,000 MG in 0.9 % Sodium Chloride Mini Bag 100 ML IVPB SCH (09:00)
[2018-05-22] MEDS: Cyanocobalamin (B-12) 1,000 MCG TABLET PO SCH (09:02)
[2018-05-22] MEDS: *HR* Promethazine 25 MG/ML VIAL IVP PRN (09:02)
[2018-05-22] MEDS: Multivit/Ca/Min/Fe/FA 1 TAB TABLET PO SCH (09:02)
[2018-05-22] MEDS: *HR* LORazepam 0.5 MG TABLET PO SCH (09:03)
[2018-05-22] MEDS: Furosemide 20 MG TABLET PO SCH (09:03)
[2018-05-22] MEDS: Sennosides/Docusate Sodium TABLET PO SCH ×2 (09:03→21:56)
--- NOTE | 2018-05-22 09:18 | Electrocardiograph Report ---
[address] [place], [place] [address] Test Date: 2018-05-21 Pat Name: Marilynn Yin Department: EXAM3 Room: 3A63 Gender: F Button Sewer: : 1935 Requested By: Johana Law Order Number: [id number] Reading MD: Paula Escobedo Measurements Intervals [place] Rate: 63 P: 67 [place]: 169 QRS: -11 QRSD: 108 T: 58 QT: 444 QTc: 455 Interpretive Statements Sinus rhythm Electronically Signed On 05-22-2018 9:17:17 EDT by Paula Escobedo
[2018-05-22 10:02] LABS: Hematocrit 28.3 % (35.3-44.9); Hemoglobin 8.1 g/dL (11.5-15.4)
[2018-05-22] MEDS ORDERED: Nitrofurantoin (BID) 100 MG CAPSULE PO SCH (11:00)
[2018-05-22] MEDS: Benzonatate 100 MG CAPSULE PO PRN (11:45)
--- NOTE | 2018-05-22 13:42 | Internal Med Progress Note ---
Hospitalist Progress Note - Encounter Date of Encounter: 05/22/18 Time of Encounter: 08:45 - Subjective Interval History: Patient is lying in bed. Complains of cough and patient is extremely bothered by it. She is also been having episodes of anxiety and received Ativan last evening. She denies any chest pain or palpitations. No new episodes of active GI bleed. - Exam Vitals: Temp Pulse Resp BP Pulse Ox 98.6 F 110 14 136/73 97 05/22/18 11:55 05/22/18 11:55 05/22/18 11:55 05/22/18 11:55 05/22/18 11:55 Exam: General: Patient is alert, no acute distress, oriented x 2 Respiratory: Diminished breath sounds at both bases Cardiovascular: Regular rate and rhythm. s1 and s2 normal No clicks, rubs, gallops, or murmurs. No pedal edema Abdomen: Abdomen is soft, nontender. Bowel sounds are present Musculoskeletal: Spontaneously moving all extremities Skin: warm, dry, intact, pallor Neuro: Alert oriented x 3 normal cranial nerves, no focal deficits Psych: Patient appears anxious - Assessment and Plan (1) GI bleed Current Visit: Yes Status: Acute Assessment and Plan: Suspected GI bleed. Stool positive for occult blood. Gastroenterology consult appreciated. Patient is not a candidate for endoscopy at this time given her comorbidities, DNR status and family wishes. We will continue to monitor blood counts periodically. Anticoagulation has been stopped. (2) Anemia Current Visit: Yes Status: Suspected Assessment and Plan: Suspected acute blood loss anemia. Hemoglobin was 6.9 this morning but recheck showed hemoglobin of 8.1. No indication for blood transfusion. Discussed with patient's daughter who is the POA. At this time today , they are very hesitant to start transfusion. They are also considering hospice. Palliative care consult has been placed. (3) Dementia Current Visit: Yes Status: Chronic Assessment and Plan: Supportive care. Palliative care consult her to help with goals of care and discharge planning. (4) Atrial fibrillation Current Visit: Yes Status: Chronic Assessment and Plan: Heart rate between 100-110. Patient not on any rate controlling medication. We will place her on Lopressor IV as needed for heart rate greater than 110 (5) Urinary tract infection Current Visit: Yes Status: Acute Assessment and Plan: Urine culture growing gram-negative rods. We will await final culture results. Change antibiotic to Omnicef as patient has lost IV access. - Time Spent with Patient Total time spent is greater than 50% in coordination of care (as documented) at patient's floor/unit and/or counseling patient: Internal Medicine: Result - Labs CBC & Chem 7: 05/22/18 09:52 05/22/18 04:36 Labs: Short CBC 05/21/18 05/21/18 05/22/18 Range/Units 15:45 21:46 04:36 WBC 4.2 L (4.3-11.1) K/mcL Hgb 8.5 L 7.6 L 6.9 L (11.5-15.4) g/dL Hct 30.1 L 26.5 L 23.9 L (35.3-44.9) % Plt Count 140 (140-400) K/mcL Neutrophils # 2.4 (1.6-8.9) K/mcL 05/22/18 Range/Units 09:52 WBC (4.3-11.1) K/mcL Hgb 8.1 L (11.5-15.4) g/dL Hct 28.3 L (35.3-44.9) % Plt Count (140-400) K/mcL Neutrophils # (1.6-8.9) K/mcL BMP 05/22/18 04:36 Sodium 140 Potassium 3.8 Chloride 109 H Carbon Dioxide 27 BUN 15 Creatinine 0.90 Glucose 98 Calcium 8.6 Liver Function 05/22/18 Range/Units 04:36 Total Bilirubin 0.4 (0.3-1.0) mg/dL AST 13 (13-39) Units/L ALT 4 L (7-52) Units/L Alkaline Phosphatase 45 (34-104) Units/L Albumin 3.2 L (3.5-5.7) g/dL - ABG Interpretation ABG results: PT/INR, D-dimer PT 19.0 Seconds (9.4-12.1) H 05/21/18 12:13 Consult Discharge Plan - Plan Referrals: Isatu Giron MD [Primary Care Provider] - (1) GI bleed Qualifiers: GI bleed type/associated pathology: unspecified gastrointestinal hemorrhage type Qualified Code(s): K92.2 - Gastrointestinal hemorrhage, unspecified (2) Anemia Qualifiers: Other causes of anemia: acute posthemorrhagic (3) Dementia Qualifiers: Dementia type: vascular dementia Dementia behavioral disturbance: with behavioral disturbance Qualified Code(s): F01.51 - Vascular dementia with behavioral disturbance (4) Atrial fibrillation Qualifiers: Atrial fibrillation type: paroxysmal Qualified Code(s): I48.0 - Paroxysmal atrial fibrillation (5) Urinary tract infection Qualifiers: Urinary tract infection type: acute cystitis Hematuria presence: without hematuria Qualified Code(s): N30.00 - Acute cystitis without hematuria
[2018-05-22] MEDS: *HR* LORazepam 0.5 MG TABLET PO PRN ×2 (14:42→21:53)
[2018-05-22 18:47] LABS: Adenovirus Not Detected (Not Detect); Bordetella Pertussis Not Detected (Not Detect); Chlamydophila pneumoniae Not Detected (Not Detect); Coronavirus 229E Not Detected (Not Detect); Coronavirus HKU1 Not Detected (Not Detect); Coronavirus NL63 Not Detected (Not Detect); Coronavirus OC43 Not Detected (Not Detect); Human Metapneumovirus Not Detected (Not Detect); Human Rhinovirus/Enterovirus Not Detected (Not Detect); Influenza A Subtype 2009 H1 Not Detected (Not Detect); Influenza A Untypeable Not Detected (Not Detect); Influenza B Not Detected (Not Detect); Mycoplasma pneumoniae Not Detected (Not Detect); Parainfluenza Virus 1 Not Detected (Not Detect); Parainfluenza Virus 2 Not Detected (Not Detect); Parainfluenza Virus 3 Not Detected (Not Detect); Parainfluenza Virus 4 Not Detected (Not Detect); Respiratory Syncytial Virus Not Detected (Not Detect)
[2018-05-22] MEDS: OLANZapine 5 MG TAB.RAPDIS PO SCH (21:53)
[2018-05-22] MEDS: Mirtazapine 15 MG TABLET PO SCH (21:55)
[2018-05-22] MEDS: Cefdinir 300 MG CAPSULE PO SCH (21:55)
[2018-05-23 01:40] LABS: Basophils % 0.4 %; Eosinophils # 0.2 K/mcL (0.0-0.6); Hematocrit 24.6 % (35.3-44.9); Hemoglobin 7.2 g/dL (11.5-15.4); Lymphocytes # 1.1 K/mcL (0.6-4.6); Mean Corpuscular HGB Conc 29.3 g/dL (31.6-35.5); Mean Corpuscular Hemoglobin 23.7 pg (28.0-33.3); Mean Corpuscular Volume 80.9 fL (83.0-100.0); Mean Platelet Volume 10.3 fL (9.4-12.4); Monocytes # 0.7 K/mcL (0.0-1.3); Monocytes % 13.6 %; Platelet Count 204 K/mcL (140-400); Red Blood Count 3.04 M/mcL (3.82-4.97); Red Cell Distribution Width 16.6 % (11.5-14.5)
[2018-05-23 01:59] LABS: Alanine Aminotransferase 4 Units/L (7-52); Albumin 3.3 g/dL (3.5-5.7); Albumin/Globulin Ratio 1.2 (1.1-2.2); Alkaline Phosphatase 51 Units/L (34-104); Aspartate Amino Transferase 13 Units/L (13-39); BUN/Creatinine Ratio 14 (6-26); Bilirubin,Total 0.5 mg/dL (0.3-1.0); Blood Urea Nitrogen 13 mg/dL (8-23); Calcium 8.8 mg/dL (8.6-10.3); Carbon Dioxide 28 mEq/L (23-29); Chloride 105 mEq/L (98-107); Globulin 2.7 g/dL (2.4-3.5); Glucose 92 mg/dL (70-105); Osmolality,Calculated 290 (280-300); Potassium 3.7 mEq/L (3.5-5.1); Sodium 140 mEq/L (136-145); eGFR For Non-African Americans 60 (> 60)
[2018-05-23] MEDS: *HR* LORazepam 0.5 MG TABLET PO PRN ×2 (02:30→07:53)
[2018-05-23] MEDS: Levalbuterol Neb 1.25 MG/3 ML IH SCH ×4 (05:43→22:29)
[2018-05-23] MEDS: Cyanocobalamin (B-12) 1,000 MCG TABLET PO SCH (07:52)
[2018-05-23] MEDS: Multivit/Ca/Min/Fe/FA 1 TAB TABLET PO SCH (07:53)
[2018-05-23] MEDS: Furosemide 20 MG TABLET PO SCH (07:53)
[2018-05-23] MEDS: Benzonatate 100 MG CAPSULE PO PRN (07:53)
[2018-05-23] MEDS: Cefdinir 300 MG CAPSULE PO SCH ×2 (07:53→22:45)
[2018-05-23] MEDS: Sennosides/Docusate Sodium TABLET PO SCH ×2 (07:53→22:46)
--- NOTE | 2018-05-23 11:41 | Internal Med Progress Note ---
Hospitalist Progress Note - Encounter Date of Encounter: 05/23/18 Time of Encounter: 08:50 - Subjective Interval History: Patient was having auditory and visual hallucinations earlier today but seems to have improved since then. She is pleasant and comfortable during my interview. Denies any chest pain or other complaints. No fever reported overnight. - Exam Vitals: Temp Pulse Resp BP Pulse Ox 97.9 F 65 18 135/66 93 05/23/18 11:32 05/23/18 11:32 05/23/18 11:32 05/23/18 11:32 05/23/18 11:32 Exam: General: Patient is alert, no acute distress, oriented x 2 Respiratory: Good respiratory effort. Normal breath sounds. No wheezing or crackles. Cardiovascular: Regular rate and rhythm. s1 and s2 normal No clicks, rubs, gallops, or murmurs. No pedal edema Abdomen: Abdomen is soft, nontender. Bowel sounds are present Musculoskeletal: Spontaneously moving all extremities Skin: warm, dry, intact. Pallor Neuro: Alert oriented x2 normal cranial nerves, no focal deficits - Assessment and Plan (1) GI bleed Current Visit: Yes Status: Acute Assessment and Plan: Stable hemoglobin levels. No indication for transfusion. No endoscopy planned due to patient's age, wishe. Stopped anticoagulation. Plan to transition to hospice/ comfort care. (2) Anemia Current Visit: Yes Status: Suspected Assessment and Plan: Stable. Will continue to monitor for now. (3) Dementia Current Visit: Yes Status: Chronic Assessment and Plan: Continue supportive care. Will treat symptoms of delirium with Zyprexa and Ativan as needed (4) Atrial fibrillation Current Visit: Yes Status: Chronic Assessment and Plan: Heart rate is quite well-controlled. No longer on anticoagulation due to episode of GI bleed and advanced age. (5) Urinary tract infection Current Visit: Yes Status: Acute Assessment and Plan: Urine culture growing Escherichia coli sensitive to second and third generation cephalosporins. Patient is currently on Omnicef. We will continue the same. DVT Prophylaxis: With SCDs alone due to GI bleed. - Time Spent with Patient Total time spent is greater than 50% in coordination of care (as documented) at patient's floor/unit and/or counseling patient: Internal Medicine: Result - Labs CBC & Chem 7: 05/23/18 01:27 05/23/18 01:27 Labs: Short CBC 05/23/18 Range/Units 01:27 WBC 4.9 (4.3-11.1) K/mcL Hgb 7.2 L (11.5-15.4) g/dL Hct 24.6 L (35.3-44.9) % Plt Count 204 (140-400) K/mcL Neutrophils # 3.0 (1.6-8.9) K/mcL BMP 05/23/18 01:27 Sodium 140 Potassium 3.7 Chloride 105 Carbon Dioxide 28 BUN 13 Creatinine 0.90 Glucose 92 Calcium 8.8 Liver Function 05/23/18 Range/Units 01:27 Total Bilirubin 0.5 (0.3-1.0) mg/dL AST 13 (13-39) Units/L ALT 4 L (7-52) Units/L Alkaline Phosphatase 51 (34-104) Units/L Albumin 3.3 L (3.5-5.7) g/dL - ABG Interpretation ABG results: PT/INR, D-dimer PT 19.0 Seconds (9.4-12.1) H 05/21/18 12:13 Consult Discharge Plan - Plan Referrals: Isatu Giron MD [Primary Care Provider] - (1) GI bleed Qualifiers: GI bleed type/associated pathology: unspecified gastrointestinal hemorrhage type Qualified Code(s): K92.2 - Gastrointestinal hemorrhage, unspecified (2) Anemia Qualifiers: Anemia type: other cause Other causes of anemia: acute posthemorrhagic Qualified Code(s): D62 - Acute posthemorrhagic anemia (3) Dementia Qualifiers: Dementia type: vascular dementia Dementia behavioral disturbance: with behavioral disturbance Qualified Code(s): F01.51 - Vascular dementia with behavioral disturbance (4) Atrial fibrillation Qualifiers: Atrial fibrillation type: paroxysmal Qualified Code(s): I48.0 - Paroxysmal atrial fibrillation (5) Urinary tract infection Qualifiers: Urinary tract infection type: acute cystitis Hematuria presence: without hematuria Qualified Code(s): N30.00 - Acute cystitis without hematuria
--- NOTE | 2018-05-23 12:52 | Palliative - Consult Note ---
Date of Encounter: 05/23/18 Time of Encounter: 12:50 - Assessment and Plan (1) Anxiety and depression Current Visit: Yes Status: Chronic Assessment and plan: Continues with home meds of Celexa, Zyprexa, and has low dose Lorazepam PRN. Daughter states Lorazepam has been helpful to her, despite hallucinations and desires this to continue. Monitor (2) Goals of care, counseling/discussion Current Visit: Yes Status: Acute Assessment and plan: Long discussion with daughter KEITH Lunsford. She brought advanced directives with her and copies made and placed on medical records. She states after speaking with Dr. Jenkins yesterday, she does not desire any further testing, scopes. Discussed this am, if she still desired transfusions if necessary for GI bleed. After consideration, Isatu does not want to have future transfusions either. She is interested in transitioning to hospice care at [facility]. Discussed code status at length, and she transitioned pt to DNRCC - state form completed and copies provided to her. Will make referral to [place] [facility] - who can likely enroll pt at [facility]. Will D/W hospitalist. Anticipate D/C tomorrow. (3) Abdominal pain Current Visit: Yes Status: Acute Assessment and plan: Has Acetaminophen available PRN. Has not utilized. Qualifiers: Abdominal location: lower abdomen, unspecified Qualified Code(s): R10.30 - Lower abdominal pain, unspecified (4) GI bleed Current Visit: Yes Status: Acute Qualifiers: GI bleed type/associated pathology: unspecified gastrointestinal hemorrhage type Qualified Code(s): K92.2 - Gastrointestinal hemorrhage, unspecified (5) Dementia Current Visit: Yes Status: Chronic Qualifiers: Dementia type: vascular dementia Dementia behavioral disturbance: with behavioral disturbance Qualified Code(s): F01.51 - Vascular dementia with behavioral disturbance Palliative-CN HPI - Data of Consult Requesting Physician: Jeremy Price MD Primary Care Provider: Isatu Giron MD - Consult Narrative History of present illness: Ms. Yin is a 83 year old female who was admitted after sent from [facility] for cough and anemia. She has history of dementia, and has been in nursing facility for 2 years. She was found to be anemia and was on Eliquis for history of afib. She is disoriented and hallucinating during my visit, however , daughter at bedside providing most of information. Hgb was down to 6.9 - today 7.2. She has had reported black stool, but also noted she takes iron supplements. She has had colonoscopy in the past with incomplete polypectomy in 2016, and did not have follow up. Daughter states she had declined and has been having increased hallucinations as well at [facility]. Upon my visit, she is resting comfortably - daughter is feeding her. Denies pain or discomfort. She tells me she went for walk with outside and it was cool. She is calling her daughter Isatu at bedside her mother. CC: Jeremy Price MD - Time Spent with Patient Time: Total time spent is greater than 50% in coordination of care (as documented) at patient's floor/unit and/or counseling patient: Greater than 35 minutes (75 min spent in counseling and coordination of care) Past Med Surg Social Fam HX - Past Medical History Medical history: atrial fibrillation, CVA, dementia, hypertension, other Additional medical history: vitamin D deficency Psychiatric history: anxiety - Past Surgical History Surgical History: cholecystectomy Additional surgical history: hernia,lasik - Social History Smoking Status: Former smoker Smokeless Tobacco Status: No Alcohol use: none Drug use: none - Family History Father History Unknown: Yes (D/t divorce) Race: Family Member Ethnicity: Non- Living Status: Cause of : Unknown Mother Adopted: No Race: Family Member Ethnicity: Non- Living Status: Hx Family Cardiac Disorders: Yes (heart problems) Medications and Allergies Cholecalciferol (Vitamin D3) [Vitamin D3] 1,000 unit PO DAILY 09/01/15 [History] Mv-Min/FA/Vit K/Lycop/Lut/Zeax [Ocuvite Eye Plus Multi Tablet] 1 tab PO DAILY [History] Omeprazole 20 mg PO DAILY #30 tablet. 09/22/15 [Rx] Sucralfate [Carafate] 1 gm PO BID 03/24/16 [History] Citalopram [CeleXA] 20 mg PO DAILY 07/19/16 [History] Cyanocobalamin (B-12) [Vitamin B12] 2,000 mcg PO DAILY 07/19/16 [History] Ferrous Gluconate 324 mg PO BID 12/10/16 [History] Furosemide [Lasix] 20 mg PO DAILY 07/19/16 [History] Potassium Chloride [K-Tab ER] 20 meq PO DAILY 07/19/16 [History] Sennosides/Docusate Sodium [Senna Plus] 2 tab PO BID 07/19/16 [History] Aspirin Enteric Coated [Aspirin EC] 81 mg PO DAILY #30 tablet. 08/18/16 [Rx] LORazepam [Ativan] 0.5 mg PO BID 05/21/18 [History] Losartan Potassium [Cozaar] 50 mg PO DAILY 05/21/18 [History] Meclizine HCl [Wal-Dram 2] 25 mg PO Q8H PRN 05/21/18 [History] Mirtazapine [Remeron] 15 mg PO HS 05/21/18 [History] OLANZapine [Zyprexa] 2.5 mg PO HS 05/21/18 [History] Ondansetron HCl [Zofran] 4 mg PO Q6H PRN 05/21/18 [History] Polyethylene Glycol 3350 [MiraLAX Powder Bulk 17.9 Oz] 1 scoop PO DAILY [History] Rivaroxaban [Xarelto] 20 mg PO DAILY 05/21/18 [History] 3 Allergy/AdvReac Type Severity Reaction Status Date / Time codeine Allergy Mild See Verified 07/19/16 13:00 Comments ROS unobtainable: due to mental status Palliative Care-Exam - Constitutional Vitals: Temp Pulse Resp BP Pulse Ox 97.9 F 65 18 135/66 93 05/23/18 11:32 05/23/18 11:32 05/23/18 11:32 05/23/18 11:32 05/23/18 11:32 General appearance: Present: no acute distress - Head Head Exam: Present: normal inspection, normocephalic - Respiratory Respiratory exam: Present: CTAB - Cardiovascular Cardiovascular exam: Present: irregular rhythm - GI/Abdominal Exam GI/Abdominal exam: Present: normal bowel sounds, soft - Extremities Exam Extremities exam: Present: normal capillary refill, normal inspection - Neurological Exam Neurological exam: Present: alert, strengths equal and symetr throughout Additional comments: Oriented to name only. Follows simple one step commands. - Skin Skin exam: Present: dry, pallor, warm Internal Medicine - CN: Reslt - Labs CBC & Chem 7: 10/14/18 01:27 05/23/18 01:27 Labs: Short CBC 05/23/18 Range/Units 01:27 WBC 4.9 (4.3-11.1) K/mcL Hgb 7.2 L (11.5-15.4) g/dL Hct 24.6 L (35.3-44.9) % Plt Count 204 (140-400) K/mcL Neutrophils # 3.0 (1.6-8.9) K/mcL BMP 05/23/18 01:27 Sodium 140 Potassium 3.7 Chloride 105 Carbon Dioxide 28 BUN 13 Creatinine 0.90 Glucose 92 Calcium 8.8 Liver Function 05/23/18 Range/Units 01:27 Total Bilirubin 0.5 (0.3-1.0) mg/dL AST 13 (13-39) Units/L ALT 4 L (7-52) Units/L Alkaline Phosphatase 51 (34-104) Units/L Albumin 3.3 L (3.5-5.7) g/dL - ABG Interpretation ABG results: PT/INR, D-dimer PT 19.0 Seconds (9.4-12.1) H 05/21/18 12:13 Consult Discharge Plan - Plan Referrals: Isatu Giron MD [Primary Care Provider] - Palliative Quality Palliative Quality: Screen for Code Status: Yes, Screen for Goals of Care: Yes, Screen for Pain: Yes, If Pain Regimen Started, Initiate Bowel Regimen: NA, Screen for Nausea/Vomitting: Yes Code Status: 05/21/18 13:09 Resuscitation Status: Active [RES] Routine Comment: Resuscitation Status: DNR-Comfort Care-Arrest
[2018-05-23] MEDS: OLANZapine 5 MG TAB.RAPDIS PO SCH (22:43)
[2018-05-23] MEDS: Mirtazapine 15 MG TABLET PO SCH (22:46)
[2018-05-24] MEDS: Levalbuterol Neb 1.25 MG/3 ML IH SCH ×2 (04:51→10:35)
[2018-05-24 05:39] LABS: Basophils % 0.5 %; Eosinophils # 0.2 K/mcL (0.0-0.6); Eosinophils % 3.3 %; Hemoglobin 7.9 g/dL (11.5-15.4); Lymphocytes # 1.1 K/mcL (0.6-4.6); Lymphocytes % 20.4 %; Mean Corpuscular HGB Conc 29.3 g/dL (31.6-35.5); Mean Corpuscular Hemoglobin 23.7 pg (28.0-33.3); Mean Corpuscular Volume 81.1 fL (83.0-100.0); Mean Platelet Volume 10.6 fL (9.4-12.4); Monocytes # 0.8 K/mcL (0.0-1.3); Monocytes % 14.4 %; Neutrophils # 3.4 K/mcL (1.6-8.9); Platelet Count 228 K/mcL (140-400); Red Blood Count 3.33 M/mcL (3.82-4.97); Red Cell Distribution Width 17.1 % (11.5-14.5); Segmented Neutrophils % 61.4 %
[2018-05-24 06:00] LABS: Alanine Aminotransferase 5 Units/L (7-52); Albumin 3.6 g/dL (3.5-5.7); Albumin/Globulin Ratio 1.3 (1.1-2.2); Alkaline Phosphatase 62 Units/L (34-104); Aspartate Amino Transferase 13 Units/L (13-39); BUN/Creatinine Ratio 12 (6-26); Bilirubin,Total 0.5 mg/dL (0.3-1.0); Blood Urea Nitrogen 12 mg/dL (8-23); Carbon Dioxide 30 mEq/L (23-29); Chloride 104 mEq/L (98-107); Globulin 2.8 g/dL (2.4-3.5); Glucose 103 mg/dL (70-105); Osmolality,Calculated 288 (280-300); Potassium 3.5 mEq/L (3.5-5.1); Sodium 139 mEq/L (136-145); Total Protein 6.4 g/dL (6.4-8.9); eGFR For Non-African Americans 54 (> 60)
[2018-05-24] MEDS: *HR* Promethazine 25 MG/ML VIAL IVP PRN (09:14)
[2018-05-24 09:40] LABS: Estimated Average Glucose 88 mg/dl; Hemoglobin A1C 4.7 %
--- NOTE | 2018-05-24 09:49 | Discharge Summary ---
- NOTES TO OUTPATIENT PROVIDER Notes to Outpatient Provider: Patient was hospitalized here with possible GI bleed. Patient was on Xarelto for anticoagulation due to atrial fibrillation. Evaluated by GI. Recommended stopping Xarelto. Given her advanced age and comorbidities, recommended against doing endoscopy at this time. Her hemoglobin levels have remained stable. Patient is DNR comfort care currently and family wishes for her to be on hospice. Did not want any blood transfusions. Patient will be discharged back to residential on hospice. Stable for discharge today. Date of Encounter: 05/24/18 Time of Encounter: 09:42 - Discharge Diagnosis (1) GI bleed Priority: Primary Status: Acute Qualifiers: GI bleed type/associated pathology: unspecified gastrointestinal hemorrhage type Qualified Code(s): K92.2 - Gastrointestinal hemorrhage, unspecified (2) Anemia Priority: Secondary Status: Suspected Qualifiers: Anemia type: other cause Other causes of anemia: acute posthemorrhagic Qualified Code(s): D62 - Acute posthemorrhagic anemia (3) Dementia Priority: Secondary Status: Chronic Qualifiers: Dementia type: vascular dementia Dementia behavioral disturbance: with behavioral disturbance Qualified Code(s): F01.51 - Vascular dementia with behavioral disturbance (4) Atrial fibrillation Priority: Secondary Status: Chronic Qualifiers: Atrial fibrillation type: paroxysmal Qualified Code(s): I48.0 - Paroxysmal atrial fibrillation (5) Urinary tract infection Priority: Secondary Status: Acute Qualifiers: Urinary tract infection type: acute cystitis Hematuria presence: without hematuria Qualified Code(s): N30.00 - Acute cystitis without hematuria Hospital course: Ms. Yin is a 83 year old female Patient with history of atrial fibrillation, dementia, who was hospitalized here with possible GI bleed. Patient was on Xarelto for anticoagulation due to atrial fibrillation. Evaluated by GI. Recommended stopping Xarelto. Given her advanced age and comorbidities, recommended against doing endoscopy at this time. Her hemoglobin levels have remained stable. Patient is DNR comfort care currently and family wishes for her to be on hospice. Did not want any blood transfusions. Patient will be discharged back to residential on hospice. Stable for discharge today. She has been having cough for nausea which are being treated symptomatically. She also had a UTI with Escherichia coli with for which she will complete treatment with Omnicef. Discharge discussed with: patient, family, nurse, enterprise resource planning consultant - Time Spent with Patient Total time spent providing and/or coordinating discharge services: Greater than 30 minutes (35 min) - Discharge Medications Prescriptions: Ondansetron ODT [Zofran ODT] 4 mg SL Q8HR #30 tab.rapdis Cefdinir [Omnicef] 300 mg PO BID #10 capsule LORazepam [Ativan] 0.5 mg PO TID PRN 6 Days #20 tablet PRN Reason: Anxiety Omeprazole [PriLOSEC] 40 mg PO BID #60 cap Home Medications: Cholecalciferol (Vitamin D3) [Vitamin D3] 1,000 unit PO DAILY 09/01/15 [History] Mv-Min/FA/Vit K/Lycop/Lut/Zeax [Ocuvite Eye Plus Multi Tablet] 1 tab PO DAILY [History] Sucralfate [Carafate] 1 gm PO BID 03/24/16 [History] Citalopram [CeleXA] 20 mg PO DAILY 07/19/16 [History] Cyanocobalamin (B-12) [Vitamin B12] 2,000 mcg PO DAILY 07/19/16 [History] Ferrous Gluconate 324 mg PO BID 07/19/16 [History] Furosemide [Lasix] 20 mg PO DAILY 07/19/16 [History] Potassium Chloride [K-Tab ER] 20 meq PO DAILY 07/19/16 [History] Sennosides/Docusate Sodium [Senna Plus] 2 tab PO BID 07/19/16 [History] Aspirin Enteric Coated [Aspirin EC] 81 mg PO DAILY #30 tablet. 08/18/16 [Rx] Losartan Potassium [Cozaar] 50 mg PO DAILY 05/21/18 [History] Meclizine HCl [Wal-Dram 2] 25 mg PO Q8H PRN 05/21/18 [History] Mirtazapine [Remeron] 15 mg PO HS 05/21/18 [History] OLANZapine [Zyprexa] 2.5 mg PO HS 05/21/18 [History] Polyethylene Glycol 3350 [MiraLAX Powder Bulk 17.9 Oz] 1 scoop PO DAILY [History] Benzonatate [Tessalon] 200 mg PO TID PRN capsule 05/24/18 [Rx] Cefdinir [Omnicef] 300 mg PO BID #10 capsule 05/24/18 [Rx] GuaiFENesin ER [Mucinex] 600 mg PO BID tbbp.12hr 05/24/18 [Rx] LORazepam [Ativan] 0.5 mg PO TID PRN 6 Days #20 tablet 05/24/18 [Rx] Omeprazole [PriLOSEC] 40 mg PO BID #60 cap 05/24/18 [Rx] Ondansetron ODT [Zofran ODT] 4 mg SL Q8HR #30 tab.rapdis 05/24/18 [Rx] Allergies/Adverse Reactions: 3 Allergy/AdvReac Type Severity Reaction Status Date / Time codeine Allergy Mild See Verified 07/19/16 13:00 Comments Date of admission: 05/23/18 14:47 Primary care physician: Isatu Giron MD Consults: 05/21/18 13:14 Consult to Occupational Therapy [CONS] Routine Comment: Evaluate, develop and implement POC Reason for Consult: Patient reports weakness in bilateral LEs and more difficulty w/ ambulation. Please assess patient for ambulation strength , safety, stability, and possible home assistive/ rehabilitation needs for post-discharge planning back to ECF. Does patient have active BEDREST order?: No Is patient medically & hemodynamically stable?: Yes Patient assessed for mobility or mobilized this visit?: No Consult to Senior Advocate [CONS] Routine Reason for SW Consult: Please assess patient for possible home needs for post -discharge planning to ECF. 05/21/18 13:18 Consult to Physical Therapy [CONS] Routine Comment: Evaluate, develop and implement POC Reason for Consult: Patient reports weakness in bilateral LEs and more difficulty w/ ambulation. Please assess patient for ambulation strength , safety, stability, and possible home assistive/ rehabilitation needs for post-discharge planning back to ECF. Does patient have active BEDREST order?: No Is patient medically & hemodynamically stable?: Yes Patient assessed for mobility or mobilized this visit?: No 05/21/18 13:19 Consult to Gastroenterology [CONS] Stat Consulting Provider: Gisel Frausto Reason for Consult: Consult discussed w/GI in ED, however Dr. Vasquez cannot do scope today and recommends consult goes to Dr. Jenkins who is covering. Pts. fecal hemoccult is positive and Hgb at [facility] is 8.1 on admission. Sent from ECF because they found her Hgb to be 6.9 last night. Pt. is on Xarelto d/t hx of Afib and was given last dose @ 07:22 this morning. Call Completed: Yes 05/21/18 15:47 Consult to Respiratory Therapy [CONS] Stat Reason for Consult: Add flutter valve to pts. Xopenex IH Call Completed: Yes 05/22/18 12:36 Consult to Palliative Care [CONS] Routine Comment: Consulting Provider: Palliative Care Lisbet Reason for Consult: Patient with possible GI bleed. Considering hospice Time Notified: 12:38 Call Completed: Yes Discharging clinician: Jeremy Price Anticipated date of discharge: 05/24/18 - Constitutional Vitals: Temp Pulse Resp BP Pulse Ox 98.5 F 64 14 147/61 93 05/24/18 06:30 05/24/18 06:30 05/24/18 06:30 05/24/18 06:30 05/24/18 06:30 General appearance: Present: cooperative, A&O X 1, mild distress Exam: . - Respiratory Respiratory exam: Present: CTAB. Absent: accessory muscle use, rales, rhonchi, wheezes - Cardiovascular Cardiovascular exam: Present: RRR, +S1, +S2. Absent: diastolic murmur, gallop, rubs - Extremities Exam Extremities exam: Present: warm, radial pulses palpable and symmetrical. Absent : calf tenderness, cyanotic, pedal edema - Patient Status Disposition: Hospice - Medical Facility Condition: Fair Functional capacity at discharge: bed bound Overall status at discharge: patient is progressing back to baseline - Discharge Instructions Instructions: Urinary Tract Infection in Women (DC) Follow Up With: Isatu Giron MD [Primary Care Provider] - - Diet and Activity Activity: as per physical therapy, increase activity as tolerated Diet: low fat, low cholesterol, low salt diet
--- NOTE | 2018-05-24 10:03 | Physician Discharge Referral ---
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 Institutional Level of Care: Intermediate - Diagnosis (1) GI bleed Priority: Primary Status: Acute (2) Anemia Priority: Secondary Status: Suspected (3) Dementia Priority: Secondary Status: Chronic (4) Atrial fibrillation Priority: Secondary Status: Chronic (5) Urinary tract infection Priority: Secondary Status: Acute Prognosis: Fair Aware of Diagnosis: Family Aware of Prognosis: Family - Transfer Medications Prescriptions: Ondansetron ODT [Zofran ODT] 4 mg SL Q8HR #30 tab.rapdis Cefdinir [Omnicef] 300 mg PO BID #10 capsule LORazepam [Ativan] 0.5 mg PO TID PRN 6 Days #20 tablet PRN Reason: Anxiety Omeprazole [PriLOSEC] 40 mg PO BID #60 cap Home Medications: Cholecalciferol (Vitamin D3) [Vitamin D3] 1,000 unit PO DAILY 09/01/15 [History] Mv-Min/FA/Vit K/Lycop/Lut/Zeax [Ocuvite Eye Plus Multi Tablet] 1 tab PO DAILY [History] Sucralfate [Carafate] 1 gm PO BID 03/24/16 [History] Citalopram [CeleXA] 20 mg PO DAILY 07/19/16 [History] Cyanocobalamin (B-12) [Vitamin B12] 2,000 mcg PO DAILY 07/19/16 [History] Ferrous Gluconate 324 mg PO BID 07/19/16 [History] Furosemide [Lasix] 20 mg PO DAILY 07/19/16 [History] Potassium Chloride [K-Tab ER] 20 meq PO DAILY 07/19/16 [History] Sennosides/Docusate Sodium [Senna Plus] 2 tab PO BID 07/19/16 [History] Aspirin Enteric Coated [Aspirin EC] 81 mg PO DAILY #30 tablet. 08/18/16 [Rx] Losartan Potassium [Cozaar] 50 mg PO DAILY 05/21/18 [History] Meclizine HCl [Wal-Dram 2] 25 mg PO Q8H PRN 05/21/18 [History] Mirtazapine [Remeron] 15 mg PO HS 05/21/18 [History] OLANZapine [Zyprexa] 2.5 mg PO HS 05/21/18 [History] Polyethylene Glycol 3350 [MiraLAX Powder Bulk 17.9 Oz] 1 scoop PO DAILY [History] Benzonatate [Tessalon] 200 mg PO TID PRN capsule 05/24/18 [Rx] Cefdinir [Omnicef] 300 mg PO BID #10 capsule 05/24/18 [Rx] GuaiFENesin ER [Mucinex] 600 mg PO BID tbbp.12hr 05/24/18 [Rx] LORazepam [Ativan] 0.5 mg PO TID PRN 6 Days #20 tablet 05/24/18 [Rx] Omeprazole [PriLOSEC] 40 mg PO BID #60 cap 05/24/18 [Rx] Ondansetron ODT [Zofran ODT] 4 mg SL Q8HR #30 tab.rapdis 05/24/18 [Rx] Allergies/Adverse Reactions: 3 Allergy/AdvReac Type Severity Reaction Status Date / Time codeine Allergy Mild See Verified 07/19/16 13:00 Comments - Respiratory Orders Oxygen / L per min (Keep sats greater than 90%) Smoking Cessation: Smoking cessation has been advised. For more information, call the [place] Tobacco Quit Line at 4-367-BMHJNOW. - Advance Directives Code Status: DNR-Comfort Care - Rehabiliation Orders Rehab Potential: Fair Rehab Orders: Evaluation for Physical Therapy, Evaluation for Occupational Therapy - Diet Orders Cardiac CERTIFICATION: I certify that the transfer of the above named patient to an Extended Care Facility is necessary for the continuing treatment of the diagnosis listed. The above information is true and accurate reflection of patient's current condition. Confidential - Redisclosure prohibited without a patient's written consent.
[2018-05-24] MEDS: Furosemide 20 MG TABLET PO SCH (10:36)
[2018-05-24] MEDS: Cefdinir 300 MG CAPSULE PO SCH (10:37)
[2018-05-24] MEDS: Sennosides/Docusate Sodium TABLET PO SCH (10:37)
[2018-05-24] MEDS: Cyanocobalamin (B-12) 1,000 MCG TABLET PO SCH (10:37)
[2018-05-24] MEDS: Multivit/Ca/Min/Fe/FA 1 TAB TABLET PO SCH (10:37)
[2018-05-24] MEDS: *HR* LORazepam 0.5 MG TABLET PO PRN (10:39)
--- NOTE | 2018-05-24 10:42 | Event Note ---
Date of Encounter: 05/24/18 Time of Encounter: 10:40 Referral to [facility] called. Patient to be discharged to [place] with [facility] today. [facility] requests to be notified when known time of patient transfer by primary RN. Will notify Primary RN. No new prescriptions written by Palliative care team as patient is continuing home medication regimen.
[2018-05-24 11:13] VITALS: BP 154/72
== END 2018-05-24 13:19 | disposition hospice, inpatient (51) | DRG 378 ==
LOC: 3ANU 10:11 → EMEROOARM 10:11 → SUATTDRO 12:44 → 3ANU 13:30
PROVIDERS: ADMIT Internal Medicine; ATTEND Internal Medicine